=== PATIENT | female | born 1980 | race African-American/Black ===

== ENCOUNTER 2021-01-01 16:18 | Outpatient (REF) | payer MEDICAID, SELFPAY ==
--- NOTE | ~2021-01-01 | XR_ITS ---
EXAMINATION: XR KNEE, LEFT CLINICAL INFORMATION: Pain. COMPARISON: None TECHNIQUE: Four views of the left knee. FINDINGS: Bones and soft tissues are normal. No fracture or joint effusion. Alignment is anatomic. Joint spaces are well maintained. No abnormal soft tissue calcification. XR/XR knee LT 4V IMPRESSION: Unremarkable left knee exam.
== END 2021-01-01 16:19 | disposition home or self-care (01) ==
LOC: HO.XRAY 16:18
PROVIDERS: Visit Provider Family Medicine
DX: M25.562 Pain in left knee (principal)
CPT/HCPCS: 73564

== ENCOUNTER 2023-05-05 13:16 | Emergency (ER) | payer MEDICAID, SELFPAY ==
--- NOTE | 2023-05-05 | ECG_ITS ---
Test Reason : palpitations Blood Pressure : / mmHG Vent. Rate : 083 BPM Atrial Rate : 083 BPM P-R Int : 136 ms QRS Dur : 078 ms QT Int : 368 ms P-R-T Axes : 075 029 035 degrees QTc Int : 432 ms Normal sinus rhythm Biatrial enlargement Abnormal ECG No previous ECGs available Referred By: Generic ED Physician Electronically Signed By:DEANDRE ALMARAZ MD
--- NOTE | ~2023-05-05 | XR_ITS ---
EXAMINATION: XR CHEST CLINICAL INFORMATION: Palpitations, chest pain COMPARISON: None available. TECHNIQUE: AP upright and lateral views of the chest were obtained. 1413. FINDINGS: No significant abnormality is noted involving the heart, lungs, mediastinum, bony thorax or soft tissues. XR/XR chest 2V IMPRESSION: Unremarkable examination.
--- NOTE | 2023-05-05 13:19 | ED_ITS ---
HPI - General Adult General Chief complaint: Arrhythmia/Palpitations Stated complaint: Fast heart rate- Time Seen by Provider: 05/05/23 15:55 Source: patient Mode of arrival: ambulatory Limitations: no limitations History of Present Illness HPI narrative: 43-year-old female who presents emergency department for evaluation palpitations, shortness of breath, nausea, vomiting, dizziness, numbness. The patient states that since being started on her blood pressure medications 1 year prior (amlodipine 10 mg), she has been experiencing palpitations on and off. She states that the palpitations were coming on once a month. She states that she experience palpitations 1 week ago and yesterday. She states she was driving her daughter to the bus stop when she had sudden onset of pounding sensation in her chest and felt like her heart was beating fast. She states she felt short of breath, lightheaded and dizzy. She states that the sensations have been intermittent over the past 2 days and got worse today. At the time of my evaluation she states she feels like her heart is pounding, she feels lightheaded and dizzy. She states that her lips and face feel none. She states that her hands and legs in her entire body or numb as well. Patient appears to be very anxious, tearful and tachypneic. She states that her doctor started a 2nd medication (lisinopril) for her blood pressure. Related Data Previous Rx's Medication Instructions Recorded lorazepam 0.5 mg tablet (Ativan) 0.5 mg PO TID PRN anxiety, 05/05/23 palpitations #10 tabs Allergies Allergy/AdvReac Type Severity Reaction Status Date / Time ibuprofen [From Motrin] Allergy Anaphylaxis Verified 05/05/23 13:21 Review of Systems 2 Review of Systems: Yes all other systems are reviewed and are negative [facility] Past Medical History Attestation statement: The following information was validated with the patient. [facility] Narrative: Past medical history: Hypertension, heart murmur. Surgical history: Bilateral tubal ligation. Social history: She denies tobacco use, she occasionally drinks alcohol, she smokes marijuana. Social History Social History Advance Directives: No Physical Exam ED Vital Signs: Vital Signs - 24 hr 05/05/23 13:20 11/13/23 16:26 Temperature 98.5 F 97.7 F Pulse Rate 116 H 66 Respiratory Rate 18 15 Blood Pressure 137/94 H 120/80 Pulse Oximetry 100 100 Oxygen Delivery Method Room Air Room Air BMI result Body Mass Index 29.2 Vital signs revealed elevated heart rate of 116 elevated respiratory rate 18, elevated blood pressure 137/94 Exam General: Awake, alert , anxious, tearful Head: Normocephalic, atraumatic EENT: PERRL, Lids normal, sclera normal, conjunctiva normal, nose normal , ears normal, throat without erythema or exudates Neck: Supple, no adenopathy, no trachea midline or C-spine tenderness Lung: breath sounds symmetric, no wheezing, rales or rhonchi Chest: symmetric movement, nontender Heart: Tachycardia with regular rhythm, normal S1, S2 no murmurs or rubs Abdomen: soft, non-tender, nondistended, normal bowel sounds Back: no vertebral tenderness, no CVAT Extremities: no deformities, moves all extremities symmetrically Neuro: Awake, alert, oriented, normal speech, moves all extremities symmetrically Psych: Pleasant, anxious, tearful Course Course Course Narrative: RME performed by Rekha Matta PA-C. Patient is a 43 year old assigned female at presenting to the emergency department with a rapid heart rate. Labs, imaging, and swab ordered. Patient placed back in the waiting room pending room availability and results. Medications Administered Discontinued Medications Generic Name Dose Route Start Last Admin Trade Name Freq PRN Reason Stop Dose Admin Lorazepam 2 mg 05/05/23 16:10 05/05/23 16:22 Lorazepam 1 Mg Tablet PO 05/05/23 16:11 2 mg ONCE STA Administration Medical Decision Making Medical Decision Making MDM Narrative: 43-year-old female with history of hypertension who presents emergency department for evaluation intermittent palpitations x2 days associated with lightheadedness, dizziness, nausea, numbness in her face, hands, feet and body. Examination revealed a anxious appearing woman who was tearful, she was tachycardic otherwise exam was unremarkable. Following evaluation was ordered: CBC, CMP, troponin, COVID-19, influenza, RSV, urine tox screen, chest x-ray two view, EKG 16:20 Patient's laboratory evaluation is consistent with hyperventilation syndrome with a low potassium 3.2 low bicarb of 19. Patient's high sensitive troponin I is below detectable limits. Twelve EKG is consistent with tachycardia but otherwise unremarkable. Patient's presentation is consistent with palpitations with hyperventilation syndrome. Patient was given Ativan 2 mg orally 19:05 Patient is feeling better after the above treatment. She was able to eat a sandwich and drink fluid without any difficulty. Patient will be started on Ativan 0.5 mg, 1 pill every 6-8 hours as needed for anxiety/hyperventilation Patient will need to pursue an outpatient workup for her palpitations through her PCP. Differential Diagnosis Differential Diagnoses: The differential diagnosis associated with the presentation includes Differential diagnosis includes was not limited to palpitations, cardiac ischemia, myocardial infarction, arrhythmia, hyperventilation syndrome, stress, anxiety Admission/Observation Consideration of admission/observation: Escalation of care including admission/observation considered Lab Data MDM Lab Attestation statement: I reviewed the patient's lab results. My interpretation patient's laboratory evaluation is as follows: Potassium low 3.2, bicarb low 19, glucose elevated 135, urinalysis revealed 2+ blood but otherwise negative. U tox positive for marijuana. COVID-19, influenza and RSV were negative. High sensitive troponin I was below detectable limits. 05/05/23 13:38 05/05/23 13:38 Labs: Lab Results 05/05/23 05/05/23 Range/Units 13:30 13:38 WBC 8.0 (4.8-10.8) X10*3/uL RBC 5.09 (4.20-5.50) X10*6/uL Hgb 12.1 (12.0-16.0) g/dl Hct 36.8 L (37.0-47.0) % MCV 72.3 L (80.0-98.0) fL MCH 23.8 L (27.0-33.0) pg MCHC 32.9 (31.0-35.0) g/dl RDW 13.7 (11.0-16.0) % Plt Count 254 (160-400) X10*3/uL MPV 9.9 (9.4-12.3) fL Immature Gran % (Auto) 0.4 (0.0-0.4) % Neut % (Auto) 75.5 H (45-73) % Lymph % (Auto) 19.1 L (20-40) % Teller % (Auto) 4.6 (2-11) % Eos % (Auto) 0.1 (0-4) % Baso % (Auto) 0.3 (0-2) % Lymph # (Auto) 1.5 (1.2-4.9) X10*3/uL Teller # (Auto) 0.4 (0.1-1.2) X10*3/uL Eos # (Auto) 0.0 (0.0-0.4) X10*3/uL Baso # (Auto) 0.0 (0.0-0.2) X10*3/uL Abs Immat Gran (auto) 0.03 (0.00-0.03) X10*3/uL Absolute Neuts (auto) 6.0 (2.0-8.3) x10*3/uL Absolute Nucleated RBC 0.000 (0.0-0.012) X10*3/uL Nucleated RBC % (auto) 0.0 (0.0-0.2) /100WBC PT 13.4 H (11.1-13.3) SEC INR 1.1 (0.9-1.1) APTT 37.2 H (26.0-36.4) SEC Sodium 139 (135-145) mmol/L Potassium 3.2 L (3.3-5.1) mmol/L Chloride 107 (96-108) mmol/L Carbon Dioxide 19 L (22-29) mmol/L Anion Gap 16 (12-20) BUN 6 L (9-16) mg/dL Creatinine 0.77 (0.5-1.4) mg/dL Estim Creat Clear Calc 94.6 Estimated GFR > 60 Random Glucose 135 H (60-115) mg/dL Calcium 9.5 (8.4-10.2) mg/dL Magnesium 1.8 (1.6-2.6) mg/dL Total Bilirubin 0.4 (0.0-1.0) mg/dL AST 20 (5-31) U/L ALT 11 (0-31) U/L Alkaline Phosphatase 75 (39-117) U/L Troponin I High Sens < 2.7 (<3.5-17.0) ng/L Total Protein 8.2 H (6.5-8.0) g/dL Albumin 4.5 (3.5-5.0) g/dL Urine Color Yellow Urine Appearance Clear Urine pH 5.5 (5.0-9.0) Ur Specific [place] <= 1.005 (1.005-1.025) Urine Protein Negative (Neg-Trace) mg/dL Urine Glucose (UA) Negative (Negative) mg/dL Urine Ketones 15 (Negative) mg/dL Urine Blood Moderate (2+) H (Negative) Urine Nitrite Negative (Negative) Ur Leukocyte Esterase Negative (Negative) Urine RBC 0-2 (0-2) /HPF Urine WBC 0-5 (0-5) /HPF Ur Squamous Epith Cells 0-2 (0-2) /HPF Urine Bacteria None Seen (None Seen) Hyaline Casts 0-2 (0-2) /LPF Urine Opiates Screen Not Detected (Not Detect) Urine Fentanyl Screen Not Detected (Not Detect) Ur Barbiturates Screen Not Detected (Not Detect) Ur Phencyclidine Scrn Not Detected (Not Detect) Ur Amphetamines Screen Not Detected (Not Detect) U Benzodiazepines Scrn Not Detected (Not Detect) Urine Cocaine Screen Not Detected (Not Detect) U Marijuana (THC) Screen POSITIVE H (Not Detect) Influenza Type A (PCR) NEGATIVE (Negative) Influenza Type B (PCR) NEGATIVE (Negative) RSV RNA Qual (PCR) NEGATIVE (Negative) SARS-CoV-2 RNA (RT-PCR) NEGATIVE (Negative) Independent Interpretation I performed an independent interpretation of an: EKG and Plain X-Ray Interpretation: My independent interpretation patient's 12 EKG is as follows: Normal sinus rhythm rate of 83, normal WA interval, QRS duration QTC interval, no ST segment elevation, no ST segment depression, no significant T-wave abnormalities, no PACs, no PVCs My interpretation patient's two view chest x-ray is as follows no acute disease Discharge Plan Discharge Clinical Impression: Palpitations, Hyperventilation syndrome Patient Disposition: Home, Self-Care Instructions: Heart Palpitations (ED), Hyperventilation (ED) Additional Instructions: Your blood work was unremarkable. Your EKG was normal. Your COVID-19, influenza and RSV tests were negative. Your chest x-ray was normal pain Your symptoms are consistent with palpitations which then triggered hyperventilation syndrome which caused your numbness and tingling this. Your treated with Ativan 2 mg orally. Take Ativan 0.5 mg pills, 1 pill every 6 hours as needed for anxiety. This medication will make you sleepy, do not drive or work while taking this medication. This medication can be addicting, if your concerned about addiction you can ask the pharmacist for less medications or do not get the prescription filled. You will need a workup for your palpitations as an outpatient directed by your doctor. This workup sometimes includes a Holter monitor, echocardiogram and event monitor. Follow-up with your doctor in 2 days. Please return to the emergency department if your symptoms get worse or if you develop any symptoms that are concerning to you. Prescriptions: New lorazepam [Ativan] 0.5 mg tablet 0.5 mg PO TID PRN (Reason: anxiety, palpitations) Qty: 10 0RF Rx Instructions: patient may ask for partial fill
[2023-05-05 13:20] VITALS: BP 137/94; PULSE 116; RESP 18; TEMP 36.9; O2SAT 100; BMI 29.2
[2023-05-05 13:47] LABS: MANUAL DIFF FLAG NO
[2023-05-05 13:49] LABS: Appearance Urine Clear; Color Urine Yellow; Glucose Urine UA Negative (Negative); Leukocyte Esterase Urine Negative (Negative); Nitrite Urine Negative (Negative); PH 5.5 (5.0-9.0); Specific Gravity - Urine <= 1.005 (1.005-1.025); UMIC TRIGGER UACC YES; Urine Blood Moderate (2+) (Negative); Urine Ketones 15 mg/dL (Negative); Urine Protein Negative (Neg-Trace)
[2023-05-05 13:50] LABS: Basophils Percent Auto 0.3 % (0-2); Eosinophils Percent Auto 0.1 % (0-4); Hematocrit 36.8 % (37.0-47.0); Hemoglobin 12.1 g/dl (12.0-16.0); Imm Gran Abs Auto 0.03 X10*3/uL (0.00-0.03); Imm Gran Pct Auto 0.4 % (0.0-0.4); Lymphocytes Absolute Auto 1.5 X10*3/uL (1.2-4.9); Lymphocytes Percent Auto 19.1 % (20-40); Mean Corpuscular HGB Conc 32.9 g/dl (31.0-35.0); Mean Corpuscular Hemoglobin 23.8 pg (27.0-33.0); Mean Corpuscular Volume 72.3 fL (80.0-98.0); Mean Platelet Volume 9.9 fL (9.4-12.3); Monocytes Absolute Auto 0.4 X10*3/uL (0.1-1.2); Monocytes Percent Auto 4.6 % (2-11); Neutrophils Percent Auto 75.5 % (45-73); Platelet Count 254 X10*3/uL (160-400); Red Blood Count 5.09 X10*6/uL (4.20-5.50); Red Cell Distribution Width 13.7 % (11.0-16.0)
[2023-05-05 13:54] LABS: INTERNATIONAL NORM RATIO 1.1 (0.9-1.1); Prothrombin Time 13.4 SEC (11.1-13.3)
[2023-05-05 13:56] LABS: Amphetamine Screen Urine Not Detected (Not Detect); Barbiturates, Urine Not Detected (Not Detect); Benzodiazepines Screen Urine Not Detected (Not Detect); Cannabinoid Screen Urine POSITIVE (Not Detect); Cocaine Screen Urine Not Detected (Not Detect); Fentanyl, urine Not Detected (Not Detect); Opiate Screen Urine Not Detected (Not Detect); Phencyclidine Screen Urine Not Detected (Not Detect)
[2023-05-05 13:57] LABS: Partial Thromboplastin Time 37.2 SEC (26.0-36.4)
[2023-05-05 14:04] LABS: Alanine Aminotransferase 11 U/L (0-31); Albumin Level 4.5 g/dL (3.5-5.0); Alkaline Phosphatase 75 U/L (39-117); Anion Gap 16 (12-20); Aspartate Amino Transferase 20 U/L (5-31); Bilirubin Total 0.4 mg/dL (0.0-1.0); Blood Urea Nitrogen 6 mg/dL (9-16); Calcium 9.5 mg/dL (8.4-10.2); Carbon Dioxide 19 mmol/L (22-29); Chloride 107 mmol/L (96-108); Creatinine Clr Calc Pharmacy 94.6; Estimated Glomerular Filt Rate > 60; Glucose Random 135 mg/dL (60-115); Magnesium 1.8 mg/dL (1.6-2.6); Potassium 3.2 mmol/L (3.3-5.1); Sodium 139 mmol/L (135-145); Total Protein 8.2 g/dL (6.5-8.0)
[2023-05-05 14:12] LABS: Bacteria Urine None Seen (None Seen); Hyaline Casts Urine 0-2 /LPF (0-2); RBC Urine 0-2 /HPF (0-2); Squamous Epithelial Cell Urine 0-2 /HPF (0-2); WBC Urine 0-5 /HPF (0-5)
[2023-05-05 14:15] LABS: Troponin-I High Sensitivity < 2.7 ng/L (<3.5-17.0)
[2023-05-05 14:37] LABS: Influenza A PCR NEGATIVE (Negative); Influenza B PCR NEGATIVE (Negative); Resp Syncy Virus RNA Qual PCR NEGATIVE (Negative); SARS COV2 PCR INHOUSE NEGATIVE (Negative)
[2023-05-05] MEDS: LORazepam 1 MG TABLET 2 MG PO (16:22)
--- NOTE | 2023-05-05 16:25 | PC.NURSE ---
pt has clear bronchial and vesicular ls in all feiled with a strong and regular radial pulse. pt reports feeling dizzy. speach is clear and appororiate. pt has brisk reflexes in all ext. pt denies chest discomfort. awaiting cxr results. will continue to monitor.
[2023-05-05 16:26] VITALS: BP 120/80; PULSE 66; RESP 15; TEMP 36.5; O2SAT 100
== END 2023-05-05 19:20 | disposition home or self-care (01) ==
PROVIDERS: Physician Assistant Medical; Emergency Provider Emergency Medicine Emergency Medical Services
DX: R00.2 Palpitations (principal); F45.8 Other somatoform disorders; R06.02 Shortness of breath; R11.2 Nausea with vomiting, unspecified; I10 Essential (primary) hypertension; R00.0 Tachycardia, unspecified; Z20.822 Contact with and (suspected) exposure to COVID-19; Z20.828 Contact with and (suspected) exposure to other viral communicable diseases
CPT/HCPCS: 0241U; 71046; 80053; 80307; 81001; 83735; 84484; 85025; 85610; 85730; 93005; 99283

== ENCOUNTER 2023-05-09 12:03 | Outpatient (REF) | payer MEDICAID, SELFPAY ==
[2023-05-09 13:39] LABS: Hematocrit 40.9 % (37.0-47.0); Mean Corpuscular HGB Conc 31.8 g/dl (31.0-35.0); Mean Corpuscular Hemoglobin 23.6 pg (27.0-33.0); Mean Corpuscular Volume 74.1 fL (80.0-98.0); Mean Platelet Volume 10.3 fL (9.4-12.3); Platelet Count 239 X10*3/uL (160-400); Red Blood Count 5.52 X10*6/uL (4.20-5.50); Red Cell Distribution Width 13.7 % (11.0-16.0); White Blood Count 6.5 X10*3/uL (4.8-10.8)
[2023-05-09 13:55] LABS: INTERNATIONAL NORM RATIO 1.1 (0.9-1.1); Prothrombin Time 13.6 SEC (11.1-13.3)
[2023-05-09 13:58] LABS: Partial Thromboplastin Time 35.9 SEC (26.0-36.4)
[2023-05-09 14:24] LABS: Alanine Aminotransferase 12 U/L (0-31); Albumin Level 4.6 g/dL (3.5-5.0); Alkaline Phosphatase 77 U/L (39-117); Anion Gap 15 (12-20); Aspartate Amino Transferase 19 U/L (5-31); Bilirubin Total 0.3 mg/dL (0.0-1.0); Blood Urea Nitrogen 7 mg/dL (9-16); Calcium 9.7 mg/dL (8.4-10.2); Carbon Dioxide 24 mmol/L (22-29); Chloride 105 mmol/L (96-108); Estimated Glomerular Filt Rate > 60; Glucose Random 105 mg/dL (60-115); Potassium 3.7 mmol/L (3.3-5.1); Sodium 140 mmol/L (135-145); TSH reflex Free T4 0.96 uIU/mL (0.32-4.0); Total Protein 8.4 g/dL (6.5-8.0)
== END 2023-05-09 12:04 | disposition home or self-care (01) ==
LOC: HO.HHCL 12:03
PROVIDERS: Visit Provider Nurse Practitioner
DX: R00.2 Palpitations (principal)
CPT/HCPCS: 36415; 80053; 84443; 85027; 85610; 85730

== ENCOUNTER 2023-08-20 10:59 | Outpatient (AMB) | payer MEDICAID, SELFPAY ==
--- NOTE | 2023-08-20 11:02 | A.OFFVIS_ITS ---
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 She is a 43-year-old woman with prior history of hypertension for which has been treated with amlodipine. She says this is been going on for about a year and half with the treatment although blood pressure was high for a long time. Since been amlodipine a blood pressure is better controlled. 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 However since wearing that she got concerned and was not able to tolerated and since then has been having symptoms of shortness of breath. She says the symptoms happen randomly mostly at rest. She is started noticing shortness of breath and she feels sweaty and then heart rate would race. She has got very anxious and does not denies that these episodes might be related to anxiety. She also gets symptoms of shortness of breath with exertion. She is family history of atrial fibrillation is concerned about the same. However she has never been able to reproduce the symptoms. Symptoms last for about 10-20 minutes. She has no exertional chest pain. No lightheadedness, syncope. She comes here for further workup. [facility] Family History Mother A-fib Review of Systems Const Denies weakness ENT Denies dizziness Card Denies chest pain, Denies chest pain with activity, Denies syncope, Denies rapid heart rate, Denies pedal edema, Denies edema, Denies leg edema, Denies lightheadedness, Denies palpitations, Denies dyspnea, Denies dyspnea on exertion and Denies orthopnea Resp Denies cough, Denies dyspnea and Denies dyspnea on exertion GI Denies hematochezia and Denies change in stool character Musc Denies abnormal gait, Denies muscle cramps, Denies muscle weakness, Denies numbness, Denies radiating pain into limb and Denies tingling Neuro Denies abnormal gait, Denies dizziness, Denies syncope, Denies numbness, Denies tingling and Denies weakness Endo Denies palpitations Physical Exam Vital Signs: Last Vital Signs Pulse 70 08/20/23 11:03 BP 105/50 L 08/20/23 11:03 BMI result Body Mass Index 29.1 Const General: cooperative, comfortable, no acute distress, alert, awake and Physically active Nutritional Appearance: overweight Orientation/consciousness: patient oriented x3 Limitations: no limitations HEENT Head: Yes normocephalic and Yes atraumatic Neck Neck: Yes trachea midline, Yes supple and Yes no JVD Resp Effort & Inspection: normal respiratory effort Auscultation: clear to auscultation bilaterally Cardio Jugular venous distension: no JVD Palpation: normal PMI Rate: regular rate Rhythm: regular rhythm Heart sounds: S1 normal heart sound present, S2 normal heart sound present, no click, no gallops, no murmurs and no rubs GI Auscultation: normal bowel sounds Skin General skin exam: no rashes or lesions noted Neuro General: patient oriented x3 and no focal motor deficits Extrem General: Yes no clubbing, cyanosis or edema Office Procedures EKG Details: EKG shows normal sinus rhythm with right atrial enlargement at 70 beats per minute [id number], Complete Assessment & Plan Assessment & Plan (1) Palpitations: Code(s): R00.2 - Palpitations Plan: Patient with symptoms of palpitations in the setting of stress probably related to anxiety/panic attack. Although arrhythmias such as atrial fibrillation SVT unlikely. She is associated shortness of breath and diaphoresis. Symptoms last for 10-20 minutes. However this happen randomly. Last episode was more than a month ago. This will be difficult to diagnose if she does not have recurrent symptoms. Although will suggest a 30 day event monitor to further assess for symptoms. Will also suggest echocardiogram to evaluate for hypertensive heart disease and LV systolic and diastolic function as well as biatrial chamber size. These tests will be performed in near future. We discussed about stress mi tigation strategies. She is advised to avoid stimulants especially alcohol which she drinks almost on a daily basis. She is also advised to participate in regular physical activity. Blood pressure is currently well controlled and continue current therapy. Consider workup for sleep apnea. Further treatment based on the findings of the test results. Will follow up in the clinic in 2 months time, sooner p.r.n.. Thank you for allowing me to partake in the care Orders: Orders ECG 30 day event monitor Today R00.2 - Palpitations CA echo transthoracic complete Today R00.2 - Palpitations Coding Level of Care Code New Pt Level 4 (01720) Diagnoses Palpitations R00.2 CPT Codes EKG - CPT: 94943-[id number], Complete ([id number])
[2023-08-20 11:03] VITALS: BP 105/50; PULSE 70; BMI 29.1
== END 2023-08-20 11:37 | disposition home or self-care (01) ==
PROVIDERS: PCP Nurse Practitioner; Visit Provider Internal Medicine Cardiovascular Disease
DX: R00.2 Palpitations (principal)
CPT/HCPCS: 93010; 99204

== ENCOUNTER → 2023-08-20 10:59 | Outpatient (BNVA) | payer MEDICAID, SELFPAY | PROVIDERS: PCP Nurse Practitioner; Visit Provider Internal Medicine Cardiovascular Disease | DX: R00.2 Palpitations (principal) | CPT/HCPCS: 93005; 99202 ==

== ENCOUNTER → 2023-09-23 12:51 | Outpatient (REF) | payer MEDICAID, SELFPAY ==
--- NOTE | 2023-09-23 12:55 | HM_ITS ---
Cardiac event monitor Indication: Palpitations Technique: Patient was hooked up to cardiac event monitor on 09/23/2023 for total period of 30 days. Compliance rate was about 58%. I was requested to read this study today. Findings: Baseline was normal sinus rhythm with heart rate between 60 and 100 beats per minute 80% of time. Sinus tachycardia noted 18% of the time. No significant arrhythmias or pauses noted. Patient did not report any events. Conclusion: 1. Baseline was normal sinus rhythm with no pauses or significant arrhythmias 2. No patient reported events MTDD
--- NOTE | 2023-09-23 12:55 | CA_ITS ---
Transthoracic Echocardiogram Patient (Last, First, Middle): Ousmane Murillo, Gender: Female Date of : 1980 Age: 43 Procedure Date: 09/23/2023 Procedure Type: Transthoracic Echocardiogram Location: OP Height: 162.56 cm Weight: 73.94 kg BSA: 1.79 m2 Heart Rate: bpm BP: 145 / 80 mmHg Event Manager: ALEXYS Referring MD: Alonso Garrison MD Surgical Tech: Alonso Garrison MD Symptoms: R00.2 - Palpitations Study Quality: Adequate ECG Rhythm: Sinus Conclusions: - 1. Normal LV systolic function with LVEF of 55-60% 2. Mildly dilated left atrium 3. Thickened mitral valve without any clear evidence of prolapse with mild mitral regurgitation 4. Normal RV systolic pressure 5. No gross pericardial effusion Findings Left Ventricle Normal left ventricular size, thickness, and systolic function. The visually estimated ejection fraction is between 55-60%. Spectral Doppler is indicative of a normal filling pattern. Peak GLS is -18.5%, within normal limits. Right Ventricle Normal right ventricular cavity size and systolic function. Atria The left atrium is mildly dilated. There is no evidence of interatrial shunt. The right atrium is normal in size. Aortic Valve Normal aortic valve structure and function. There is no aortic valve stenosis. There is no aortic valve regurgitation. Mitral Valve There is moderate anterior and mild posterior mitral leaflet thickening. There is mild mitral valve regurgitation. There is no mitral valve stenosis. Pulmonic Valve The pulmonic valve is likely normal. There is trace pulmonic valve regurgitation. Tricuspid Valve Normal tricuspid valve structure. There is mild tricuspid valve regurgitation. The right ventricular systolic pressure is normal. The right ventricular systolic pressure is 25 mmHg. Normal right atrial pressure. There is no evidence of pulmonary hypertension. Great Vessels All visible segments of the aorta are normal in size. The pulmonary artery was not well visualized. Venous The inferior vena cava is normal in size and collapses greater than 50% with inspiration. Pericardium/Pleural There is no evidence of pericardial effusion. Prior Study Comparison No prior study available for comparison. Measurements 2D Linear Measurements IVSd: 0.91 0.6-0.9/0.6-1.0 cm LVIDd: 5.03 3.9-5.3/4.2-5.9 cm LVIDd Index: 2.81 2.4-3.2/2.2-3.1 cm/m2 LVIDs: 3.58 2.0-3.6 cm LVPWd: 0.86 0.7-1.1 cm LA Diam: 3.80 2.7-3.8/3.0-4.0 cm LAIDs Index: 2.12 1.5-2.3 cm/m2 LV Mass: 194.08 67-162/88-224 g LV Mass Index: 108.42 43-95/49-115 g/m2 LVOT Diam: 2.20 3.0+(-)1.3 cm 2D Systolic Function EF 4C: 58.60 >55% EF 2C: 56.90 >55% EF BiP: 57.60 >55% Mitral Valve MV VTI: 0.49 MV Pk Humble: 1.62 MV Mn Humble: 0.95 MV Pk Grad: 10.00 MV Mn Grad: 4.00 MV Pk E: 1.33 MV PK A: 1.34 MV Decel Time: 284.00 E/A: 1.00 E'Lateral: 6.20 E'Medial: 6.09 E/E' Med: 21.80 E/E' Lat: 21.50 PHT: 83.00 MVA PHT: 2.65 MVA Continuity: 1.47 Decel Bollinger: 4.68 Aortic Valve AoV Pk Humble: 1.22 AoV Mn Humble: 0.92 AoV VTI: 0.27 AoV Pk Grad: 6.00 Aov Mn Grad: 4.00 PAGE Cont.VTI: 2.68 LVOT LVOT Pk Humble: 0.86 LVOT Mn Humble: 0.59 LVOT VTI: 0.19 LVOT Pk Grad: 3.00 LVOT Mn Grad: 2.00 LVOT Diam: 2.20 LVOT Area: 3.80 Diastolic Function MV Pk E: 1.33 MV Pk A: 1.34 E/A: 1.00 E'Medial: 6.09 E/E' Med: 21.80 E' Laterial: 6.20 E/E' Lat: 21.50 Right Ventricle TAPSE (mm): 19.10 TVS' Humble: 9.79 Tricuspid Valve TR Pk Humble: 2.33 TR Pk Grad: 22.00 RA Press: 3.00 RVSP: 25.00 Great Vessels Aorta Sinus of Valsalva: 3.10 2.0-3.[address] Ridge: 2.56 1.7-3.4 cm Ao Asc: 3.40 2.1-3.4 cm Ao Arch: 3.00 Updated in Other Vendor System with Status of Final Alonso Garrison MD electronically signed on 09/24/2023 4:11:55 PM with status of Final
== END ==
LOC: HO.CARD 12:51
PROVIDERS: PCP Family Medicine; Visit Provider Internal Medicine Cardiovascular Disease
DX: R00.2 Palpitations (principal)
CPT/HCPCS: 93270; 93306; 93356

== ENCOUNTER → 2023-09-23 12:55 | Outpatient (BNV) | payer MEDICAID, SELFPAY | PROVIDERS: PCP Family Medicine; Visit Provider Internal Medicine Cardiovascular Disease | DX: R00.2 Palpitations (principal) | CPT/HCPCS: 93272; 93306; 93356 ==

== ENCOUNTER 2024-11-18 10:47 | Outpatient (REF) | payer MEDICAID, SELFPAY ==
--- OUTSIDE RECORDS SUMMARY | 2024-11-18 11:15 | XMS_ITS | Encounter Summary ---
Author Organization [employer] Address [address] [facility] [address] [place] [address] Care Team Providers Care Stove Refinisher Name Role Phone Julia Oliveira MD Primary Care Provider [phone] Jp Byrnes MD Unavailable [phone] Reason for Visit * Reason Comments Med Refill Encounter Details Date Type Department Care Team ([facility] st Contact Info) Description 02/06/2023 Refill [facility] [address] [place] [address] Julia Oliveira MD [address] [place] [address] Social History Tobacco Use Types Packs/Day Years Used Date Smoking Tobacco: Never Passive Smoke Exposure: Never Smokeless Tobacco: Never Alcohol Use Standard Drinks/Week Comments Never 0 (1 standard drink = 0.6 oz pur e alcohol) Comments Unknown Sex and Gender Information Value Date Recorded Sex Assigned at Female 04/22/2022 10:29 AM EDT Legal Sex Female 10:06 AM EST Gender Identity Female 04/22/2022 10:29 AM EDT Sexual Orientation Don't know 07/22/2022 10 :18 AM EST documented as of this encounter Plan of Treatment Not on file documented as of this encounter Visit Diagnoses Not on filedocumented in this encounter Care Teams Stove Refinisher Relationship Specialty Start Date End Date Julia Oliveira MD [address] [place] [address] PCP - General Family Medicine 08/25/15 Jp Byrnes MD [address] [place] [address] [address] [place] [address] Ophthalmology 09/06/24 documented as of this encounter
[2024-11-18 11:51] LABS: MANUAL DIFF FLAG NO
[2024-11-18 11:53] LABS: Basophils Percent Auto 0.4 % (0-2); Eosinophils Absolute Auto 0.1 X10*3/uL (0.0-0.4); Eosinophils Percent Auto 1.1 % (0-4); Hematocrit 35.3 % (37.0-47.0); Hemoglobin 11.6 g/dl (12.0-16.0); Imm Gran Abs Auto 0.02 X10*3/uL (0.00-0.03); Imm Gran Pct Auto 0.3 % (0.0-0.4); Lymphocytes Absolute Auto 2.8 X10*3/uL (1.2-4.9); Lymphocytes Percent Auto 39.5 % (20-40); Mean Corpuscular HGB Conc 32.9 g/dl (31.0-35.0); Mean Corpuscular Hemoglobin 23.8 pg (27.0-33.0); Mean Corpuscular Volume 72.5 fL (80.0-98.0); Mean Platelet Volume 10.5 fL (9.4-12.3); Monocytes Absolute Auto 0.7 X10*3/uL (0.1-1.2); Monocytes Percent Auto 9.7 % (2-11); Neutrophils Absolute Auto 3.4 x10*3/uL (2.0-8.3); Platelet Count 223 X10*3/uL (160-400); Red Blood Count 4.87 X10*6/uL (4.20-5.50); Red Cell Distribution Width 14.7 % (11.0-16.0)
[2024-11-18 12:40] LABS: Alanine Aminotransferase 17 U/L (0-31); Albumin Level 4.3 g/dL (3.5-5.0); Alkaline Phosphatase 70 U/L (39-117); Anion Gap 12 (12-20); Aspartate Amino Transferase 21 U/L (5-31); Bilirubin Direct < 0.2 mg/dL (0.0-0.5); Bilirubin Total 0.2 mg/dL (0.0-1.0); Blood Urea Nitrogen 5 mg/dL (9-16); Calcium 9.2 mg/dL (8.4-10.2); Carbon Dioxide 27 mmol/L (22-29); Chloride 110 mmol/L (96-108); Cholesterol 185 mg/dL (<200); Estimated Glomerular Filt Rate > 60; Glucose Random 91 mg/dL (60-115); HDL Cholesterol 69 mg/dL (>40); Iron 40 mcg/dL (30-160); LDL Cholesterol Calculated 104 mg/dL (<100); Percent Iron Saturation 15 % (15-50); Potassium 3.9 mmol/L (3.3-5.1); Sodium 145 mmol/L (135-145); Total Iron Binding Capacity 268 mcg/dL (228-428); Total Protein 7.2 g/dL (6.5-8.0); Triglycerides 62 mg/dL (<150); Unsaturated Iron Binding 228 ug/dL
[2024-11-18 12:49] LABS: HIV AB/AG Nonreactive (Nonreactive); HIV Num 1 0.06 S/CO (0.00-0.99); ~HepC Num1 0.09 S/CO (0.00-0.79); ~Hepatitis C Antibody Nonreactive (Nonreactive)
[2024-11-18 12:51] LABS: Syphilis Screen Nonreactive (Nonreactive)
[2024-11-18 12:55] LABS: Ferritin 27 ng/mL (10-250); TSH reflex Free T4 2.36 uIU/mL (0.32-4.0); Vitamin D 25-OH Total 14.2 ng/mL (>30)
[2024-11-18 13:14] LABS: Folate 3.8 ng/mL (> or = 4.0); Vitamin B12 256 pg/mL (200-900)
[2024-11-18 13:37] LABS: CT PCR NOT DETECTED (Not Detect.); NG PCR NOT DETECTED (Not Detect.)
== END 2024-11-18 10:48 | disposition home or self-care (01) ==
LOC: HO.HHCL 10:47
PROVIDERS: Visit Provider Family Medicine
DX: D64.9 Anemia, unspecified (principal); Z11.3 Encounter for screening for infections with a predominantly sexual mode of transmission; I10 Essential (primary) hypertension; F10.90 Alcohol use, unspecified, uncomplicated; E55.9 Vitamin D deficiency, unspecified
CPT/HCPCS: 80048; 80061; 80076; 82306; 82607; 82728; 82746; 83540; 84443; 85025; 86780; 86803; 87389; 87491; 87591